=== PATIENT | female | born 1975 | race African-American/Black ===

== ENCOUNTER 2018-09-07 08:50 | Day surgery (SDC) | payer OTHER ==
[2018-09-04 13:34] VITALS: BMI 23.0
[2018-09-07] MEDS ORDERED: oxyCODONE HCL 5 MG TABLET PO PRN ×2 (09:31)
[2018-09-07] MEDS ORDERED: ONDANSETRON 4 MG/2 ML VIAL IVPUSH PRN (09:31)
[2018-09-07] MEDS ORDERED: LACTATED RINGERS SOLUTION 1,000 ML IV SCH (09:45)
[2018-09-07] MEDS ORDERED: PROPOFOL 20 ML ONE (10:12)
[2018-09-07] MEDS ORDERED: MIDAZOLAM HCL 2 MG/2 ML SINGLE DOSE VIAL ONE ×2 (10:12→10:21)
--- NOTE | 2018-09-07 10:23 | HP ---
[facility] - Chief Complaint Chief Complaint: Desires IUD removal History of Present Illness: 43 yo G P LMP with bleeding problems and has retained IUD History Source: Patient Limitations to Obtaining History: No Limitations - Past Medical History Allergies/Adverse Reactions: Allergies Allergy/AdvReac Type Severity Reaction Status Date / Time No Known Allergies Allergy Verified 09/07/18 09:51 ...LMP: 08/14/18 ...: No ...: 2 ...Para: 2 - Current Medications Current Medications: Home Medications Medication Instructions Recorded NK [No Known Home Medication] 09/04/18 [facility] Physical Exam - Physical Examination Vital Signs: Vital Signs Period Temp Pulse Resp BP Sys/Rausch Pulse Ox Last 24 Hr 98.4 F-98.4 F 81-81 20-20 112-112/75-75 100 General Appearance: Well Nourished, Well Developed ENT: Clear Lung: Clear to auscultation Heart: Regular rate & rhythm, Normal S1, Normal S2 Breasts: Soft, Non-Tender, No masses bilaterally Abdomen: Soft, No tenderness Extremities: No edema, No tenderness/swelling Pelvic Exam: Within normal limits External Genitalia, Within normal limits Vagina, Within normal limits Cervix, Within normal limits Uterus, Within normal limits [facility]: Intact, Alert, Oriented [facility] Impression/Plan - Impression/Plan Impression: Retained IUD. Menorrhagia Operative Procedure: Hysteroscopic IUD removal Date to be Performed: 09/07/18
[2018-09-07] MEDS ORDERED: IBUPROFEN 400 MG TABLET (FP) PO PRN (10:30)
[2018-09-07] MEDS ORDERED: ACETAMINOPHEN 325 MG TABLET (FP) PO PRN (10:30)
--- NOTE | 2018-09-07 11:38 | OP ---
Operative Note - Note: Operative Date: 09/07/18 Pre-Operative Diagnosis: Retained IUD. Menorrhagia Operation: Hysteroscopic Lysis of adhesions. Hysteroscopic IUD removal. Suction DC Findings: Numerous intrauterine adhesions Post-Operative Diagnosis: Same as Pre-op (intrauterine adhesions) Surgeon: Alba Covarrubias Anesthesia: General Estimated Blood Loss (mls): 20 Operative Report Dictated: Yes
[2018-09-07] MEDS ORDERED: oxyCODONE HCL 10 MG SUSTAINED ACTING TABLET ONE (12:19)
[2018-09-07] MEDS ORDERED: ONDANSETRON 4 MG/2 ML VIAL ONE (12:20)
[2018-09-07 14:01] VITALS: BP 131/64; PULSE 81; TEMP 97.9
--- NOTE | 2018-09-08 16:20 | PATH ---
Surgical Pathology Report Patient Name: TAZ GARCIA [facility]. Rec. #: [id number] /Age/Gender: 1975 (Age: 43) / F Account: [id number] Location: [facility] SURGICAL Taken: 09/07/2018 Received: 09/07/2018 Reported: 09/08/2018 Physicians: Alba Covarrubias M.D. Specimen(s) Received A: REMOVED IUD B: ENDOMETRIAL CURETTINGS Clinical History Menometrorrhagia Final Diagnosis A. INTRAUTERINE DEVICE (IUD), REMOVAL: FOREIGN BODY MATERIAL CONSISTENT WITH INTRAUTERINE DEVICE (IUD). MACROSCOPIC DIAGNOSIS. B. ENDOMETRIAL CURETTINGS, DILATION AND CURETTAGE: FRAGMENTS OF SECRETORY ENDOMETRIUM, FOCAL STROMAL PSEUDODECIDUALIZATION, AND ASSOCIATED FOCAL ACUTE INFLAMMATORY INFILTRATE. SCANT SUPERFICIAL MYOMETRIUM. BENIGN CERVICAL TISSUE WITH MICROGLANDULAR HYPERPLASIA AND FOCAL ACUTE MILD INFLAMMATION. Electronically Signed Yenny Coates M.D. Gross Description A. Received fresh labeled "removed IUD," is a 3.5 cm in length T shaped device with attached string, consistent with an intrauterine device. No soft tissue is present. No sections are submitted, gross only. B. Received in formalin labeled "endometrial curettings," is a 2.5 x 2.0 x 0.3 cm aggregate of ray red soft tissue fragments. The formalin is filtered and the specimen is entirely submitted in one cassette. /09/07/2018 saudi09/07/2018
--- NOTE | 2018-09-11 00:48 | OP ---
DATE OF OPERATION: 09/07/2018 PREOPERATIVE DIAGNOSIS: Retained intrauterine device and menorrhagia. OPERATION: Hysteroscopic lysis of adhesions, hysteroscopic intrauterine device removal and suction dilation and curettage. FINDINGS: Retained IUD as well as intrauterine adhesions. POSTOPERATIVE DIAGNOSIS: Retained intrauterine device, menorrhagia, and intrauterine adhesions. SURGEON: Alba Covarrubias MD ANESTHESIA: General. ESTIMATED BLOOD LOSS: 20 mL. PROCEDURE: Patient was taken to the operating room and placed in the dorsal lithotomy position, prepped and draped in the usual sterile fashion. Speculum was placed in the vagina. Anterior lip of the cervix was grasped with a single-toothed tenaculum. Cervix was then dilated to accommodate the operative hysteroscope. The IUD was seen in the endometrium and removal of IUD was then done. Visualization revealed numerous adhesions. Lysis of adhesions was then performed followed by suction dilation and curettage. Endometrial cavity was noted to be clean after the lysis of adhesions and suction dilation and curettage. All instruments were then removed. Patient tolerated the procedure well. Estimated blood loss was 20 mL. ALBA COVARRUBIAS M.D. [id number]
== END 2018-09-07 14:36 | disposition home or self-care (01) ==
LOC: JASU-SURG 08:50
PROVIDERS: ATTEND Obstetrics & Gynecology
PROC: 0UJD8ZZ Inspection of Uterus and Cervix, Via Natural or Artificial Opening Endoscopic (ICD-10-PCS; 2018-09-07)
PROC: 0UN98ZZ Release Uterus, Via Natural or Artificial Opening Endoscopic (ICD-10-PCS; principal; 2018-09-07 10:00)
PROC: 0UC98ZZ Extirpation of Matter from Uterus, Via Natural or Artificial Opening Endoscopic (ICD-10-PCS; 2018-09-07 10:00)
PROC: 0UDB7ZX Extraction of Endometrium, Via Natural or Artificial Opening, Diagnostic (ICD-10-PCS; 2018-09-07 10:00)
DX: N92.0 Excessive and frequent menstruation with regular cycle (principal); Z30.432 Encounter for removal of intrauterine contraceptive device; N85.6 Intrauterine synechiae
CPT/HCPCS: 88300-TC; 88305-TC; 94760

== ENCOUNTER 2021-09-16 17:44 | Inpatient (IN) | payer OTHER ==
[2021-09-16] MEDS ORDERED: ACETAMINOPHEN 1000 MG/100 ML BAG IVPB ONE (18:26)
[2021-09-16] MEDS ORDERED: METOCLOPRAMIDE HCL INJECTION 10 MG/2 ML VIAL IVPB ONE (18:26)
[2021-09-16] MEDS ORDERED: SODIUM CHLORIDE 1,000 ML IV STA (18:26)
[2021-09-16 18:54] LABS: BASO % 0.6 % (0-2.0); EOS % 0.5 % (0-4.5); HEMATOCRIT 42.1 % (32.4-45.2); LYMPH % 26.2 % (8-40); MCH 29.4 pg (25.7-33.7); MCHC 33.4 g/dl (32.0-36.0); MEAN CELL VOLUME 87.9 fl (80-96); MEAN PLT VOLUME 8.4 fl (7.5-11.1); MONO % 7.1 % (3.8-10.2); NEUT % 65.6 % (42.8-82.8); PLATELET COUNT 275 10^3/uL (134-434); RBC 4.78 M/mm3 (3.60-5.2); RDW 13.1 % (11.6-15.6)
[2021-09-16] MEDS ORDERED: ACETAMINOPHEN INJECTION 100 ML IVPB ONE ×2 (18:54→20:13)
[2021-09-16 19:01] LABS: INR 1.2 (0.83-1.09); PROTHROMBIN TIME (PATIENT) 13.8 SEC (9.7-13.0)
[2021-09-16] MEDS ORDERED: METOCLOPRAMIDE HCL INJECTION 10 MG/2 ML VIAL ONE (20:13)
[2021-09-16 20:39] LABS: PH,URINE 6.5 (5.0-8.0); URINE APPEARANCE CLEAR; URINE BILIRUBIN NEGATIVE (NEGATIVE); URINE COLOR YELLOW; URINE GLUCOSE (UA) NEGATIVE (NEGATIVE); URINE KETONE TRACE (NEGATIVE); URINE LEUK ESTERASE NEGATIVE (NEGATIVE); URINE NITRITE NEGATIVE (NEGATIVE); URINE PROTEIN NEGATIVE (NEGATIVE); URINE UROBILINOGEN 0.2 mg/dL (0.2-1.0)
[2021-09-16 20:42] LABS: HCG,QUALITATIVE URINE Negative
[2021-09-16 21:30] LABS: ALBUMIN 3.7 g/dl (3.4-5.0); BLOOD UREA NITROGEN 9.9 mg/dL (7-18); CALCIUM 9.3 mg/dL (8.5-10.1)
[2021-09-16 21:33] LABS: CREATININE 0.8 mg/dL (0.55-1.3)
[2021-09-16 21:35] LABS: BILIRUBIN,TOTAL 0.3 mg/dL (0.2-1)
[2021-09-17] MEDS ORDERED: ACETAMINOPHEN 1000 MG/100 ML BAG IVPB PRN (02:53)
[2021-09-17] MEDS: GABAPENTIN 300 MG CAPSULE PO SCH ×3 (06:08→22:56)
[2021-09-17] MEDS ORDERED: ALPRAZolam 1 MG TABLET PO PRN (06:58)
[2021-09-17] MEDS ORDERED: ENOXAPARIN NA (PORCINE) 40 MG/0.4 ML DISP.SYRIN SQ ONE (09:24)
[2021-09-17] MEDS: ENOXAPARIN NA (PORCINE) 40 MG/0.4 ML DISP.SYRIN SQ SCH (10:54)
[2021-09-17] MEDS ORDERED: ACETAMINOPHEN/CAFFEINE/BUTALBITAL 1 TAB PO PRN (12:00)
[2021-09-17] MEDS ORDERED: ALPRAZolam 1 MG TABLET ONE (13:10)
[2021-09-17 14:08] LABS: SARS-CoV-2 NAA Not Detected (Not Detected)
[2021-09-17] MEDS: ALPRAZolam 1 MG TABLET PO PRN (22:57)
[2021-09-17] MEDS: diphenhydrAMINE HCL 25 MG CAPSULE (FP) PO PRN (23:02)
[2021-09-17 23:31] VITALS: BMI 24.3
[2021-09-18] MEDS: GABAPENTIN 300 MG CAPSULE PO SCH ×4 (05:14→22:22)
[2021-09-18] MEDS: diphenhydrAMINE HCL 25 MG CAPSULE (FP) PO PRN (08:20)
[2021-09-18] MEDS: ENOXAPARIN NA (PORCINE) 40 MG/0.4 ML DISP.SYRIN SQ SCH (09:47)
[2021-09-18 10:35] LABS: CALCIUM 8.5 mg/dL (8.5-10.1)
[2021-09-18 10:36] LABS: BLOOD UREA NITROGEN 9.6 mg/dL (7-18)
[2021-09-18 10:39] LABS: CREATININE 0.9 mg/dL (0.55-1.3)
[2021-09-18] MEDS: ALPRAZolam 1 MG TABLET PO PRN (13:00)
[2021-09-18] MEDS: oxyCODONE HCL 5 MG TABLET PO PRN (14:57)
[2021-09-18] MEDS ORDERED: MAGNESIUM 2GM/50ML STERILE WATER IVPB IVPB ONE (15:37)
[2021-09-18] MEDS ORDERED: DEXAMETHASONE SOD PHOSPHATE/PF 10 MG/ML SDV IVPB ONE (15:57)
[2021-09-18] MEDS ORDERED: DEXAMETHASONE 0.5 MG TABLET PO ONE (22:00)
[2021-09-18] MEDS: TOPIRAMATE 100 MG TABLET PO SCH ×2 (22:11→22:22)
[2021-09-19] MEDS: oxyCODONE HCL 5 MG TABLET PO PRN ×2 (00:06→12:49)
[2021-09-19] MEDS: ALPRAZolam 1 MG TABLET PO PRN ×2 (01:14→12:51)
[2021-09-19] MEDS: GABAPENTIN 300 MG CAPSULE PO SCH (06:07)
[2021-09-19] MEDS ORDERED: MAGNESIUM 1GM/D5W 100ML - 100 ML IVPB IVPB ONE (08:45)
[2021-09-19] MEDS: ENOXAPARIN NA (PORCINE) 40 MG/0.4 ML DISP.SYRIN SQ SCH (09:21)
[2021-09-19] MEDS: TOPIRAMATE 100 MG TABLET PO SCH ×2 (09:29→21:28)
[2021-09-19 09:54] LABS: CALCIUM 9.6 mg/dL (8.5-10.1)
[2021-09-19 09:55] LABS: BLOOD UREA NITROGEN 7.8 mg/dL (7-18); MAGNESIUM 2.3 mg/dL (1.8-2.4)
[2021-09-19 09:58] LABS: CREATININE 0.8 mg/dL (0.55-1.3)
[2021-09-19] MEDS ORDERED: DEXAMETHASONE SOD PHOSPHATE/PF 10 MG/ML SDV IVPB ONE (16:30)
[2021-09-19] MEDS ORDERED: DEXAMETHASONE SOD PHOSPHATE 10 MG/1 ML VIAL IVPUSH ONE (17:26)
[2021-09-19] MEDS ORDERED: DOCUSATE SODIUM 100 MG CAPSULE (FP) PO ONE (17:27)
[2021-09-19] MEDS ORDERED: ACETAMINOPHEN/CAFFEINE/BUTALBITAL 1 TAB PO PRN (17:27)
[2021-09-20] MEDS: oxyCODONE HCL 5 MG TABLET PO PRN ×2 (00:21→13:45)
[2021-09-20] MEDS: ALPRAZolam 1 MG TABLET PO PRN ×2 (00:22→13:40)
[2021-09-20] MEDS ORDERED: DOCUSATE SODIUM 100 MG CAPSULE (FP) PO ONE (02:18)
[2021-09-20] MEDS: TOPIRAMATE 100 MG TABLET PO SCH (09:35)
[2021-09-20] MEDS: ENOXAPARIN NA (PORCINE) 40 MG/0.4 ML DISP.SYRIN SQ SCH (09:35)
[2021-09-20] MEDS ORDERED: DEXAMETHASONE SOD PHOSPHATE 10 MG/1 ML VIAL IVPB ONE ×2 (10:00→12:30)
[2021-09-20 13:58] VITALS: BP 112/73; PULSE 97; TEMP 98
== END 2021-09-20 19:50 | disposition home or self-care (01) | DRG 54 ==
LOC: JER 17:44 → JERBED 09-17 01:54 → J7W 09-17 22:47
PROVIDERS: ADMIT Hospitalist; ATTEND Family Medicine
DX: G43.909 Migraine, unspecified, not intractable, without status migrainosus (principal); R00.0 Tachycardia, unspecified; R07.9 Chest pain, unspecified; T50.905A Adverse effect of unspecified drugs, medicaments and biological substances, initial encounter; Y92.89 Other specified places as the place of occurrence of the external cause
CPT/HCPCS: 36415; 70450-TC; 70551-TC; 74177-TC; 80048; 80053; 81003; 82024; 82530; 82533; 82570; 83690; 83735; 84439; 84443; 84484; 84585; 84703; 85025; 85610; 85651; 87086; 93005; 93010; C9803; J1100; J8540; U0003; U0005

== ENCOUNTER 2021-10-01 10:02 | Observation (INO) | payer OTHER ==
[2021-10-01] MEDS ORDERED: SODIUM CHLORIDE 1,000 ML IV ONE (10:34)
[2021-10-01 12:14] LABS: BASO % 0.3 % (0-2.0); EOS % 0.3 % (0-4.5); HEMATOCRIT 39.8 % (32.4-45.2); LYMPH % 18.7 % (8-40); MCH 29.4 pg (25.7-33.7); MCHC 32.8 g/dl (32.0-36.0); MEAN CELL VOLUME 89.7 fl (80-96); MEAN PLT VOLUME 8.7 fl (7.5-11.1); MONO % 8.1 % (3.8-10.2); NEUT % 72.6 % (42.8-82.8); PLATELET COUNT 264 10^3/uL (134-434); RBC 4.44 M/mm3 (3.60-5.2); WHITE BLOOD COUNT 8.8 K/mm3 (4.0-10.0)
[2021-10-01] MEDS ORDERED: ACETAMINOPHEN 1000 MG/100 ML BAG IVPB ONE (12:27)
[2021-10-01 12:28] LABS: CHLORIDE 107 mmol/L (98-107); SODIUM 140 mmol/L (136-145)
[2021-10-01 12:29] LABS: CALCIUM 9.6 mg/dL (8.5-10.1)
[2021-10-01 12:30] LABS: ALBUMIN 3.8 g/dl (3.4-5.0); ANION GAP 6 MMOL/L (8-16); BLOOD UREA NITROGEN 7.8 mg/dL (7-18); CO2 26 mmol/L (21-32); GLUCOSE,RANDOM 97 mg/dL (74-106); MAGNESIUM 2.3 mg/dL (1.8-2.4)
[2021-10-01] MEDS ORDERED: ACETAMINOPHEN INJECTION 100 ML IVPB ONE (12:31)
[2021-10-01 12:33] LABS: CREATININE 0.8 mg/dL (0.55-1.3); SGPT/ALT 19 U/L (13-61)
[2021-10-01 12:34] LABS: SGOT/AST 11 U/L (15-37)
[2021-10-01 12:35] LABS: BILIRUBIN,TOTAL 0.6 mg/dL (0.2-1)
[2021-10-01 12:36] LABS: ALK PHOS 61 U/L (45-117)
[2021-10-01] MEDS ORDERED: METOCLOPRAMIDE HCL INJECTION 10 MG/2 ML VIAL IVPB ONE (13:21)
[2021-10-01 13:31] LABS: VENOUS BASE EXCESS -1.7 mmol/L (-2-2); VENOUS O2 SATURATION 51.5 % (70-80); VENOUS PCO2 44.4 mmHg (38-52); VENOUS PH 7.352 (7.310-7.410)
[2021-10-01] MEDS ORDERED: METOCLOPRAMIDE HCL INJECTION 10 MG/2 ML VIAL ONE (13:55)
[2021-10-01] MEDS ORDERED: MAGNESIUM SULF 50% (8.12 MEQ/2 ML-1 GM VIAL) IVPB ONE (14:44)
[2021-10-01] MEDS ORDERED: MAGNESIUM SULF 50% (8.12 MEQ/2 ML-1 GM VIAL) ONE (14:49)
[2021-10-01] MEDS ORDERED: FAMOTIDINE 20 MG TABLET ONE (14:52)
[2021-10-01] MEDS ORDERED: ALPRAZolam 0.25 MG TABLET ONE (15:02)
[2021-10-01] MEDS ORDERED: morphine SULFATE 4 MG/ML VIAL ONE (15:02)
[2021-10-01] MEDS: FAMOTIDINE 20 MG TABLET PO SCH (15:15)
[2021-10-01] MEDS: morphine SULFATE 4 MG/ML VIAL IVPUSH PRN ×2 (15:15→21:56)
[2021-10-01] MEDS: ALPRAZolam 0.25 MG TABLET PO PRN (15:16)
[2021-10-01 17:32] LABS: PH,URINE 5.5 (5.0-8.0); URINE APPEARANCE CLEAR; URINE BILIRUBIN NEGATIVE (NEGATIVE); URINE COLOR YELLOW; URINE GLUCOSE (UA) NEGATIVE (NEGATIVE); URINE KETONE 1+ (NEGATIVE); URINE LEUK ESTERASE NEGATIVE (NEGATIVE); URINE NITRITE NEGATIVE (NEGATIVE); URINE PROTEIN NEGATIVE (NEGATIVE); URINE UROBILINOGEN 0.2 mg/dL (0.2-1.0)
[2021-10-01 17:44] LABS: URINE BARBITURATES NEGATIVE (NEGATIVE)
[2021-10-01 17:45] LABS: COCAINE, UR NEGATIVE (NEGATIVE); PHENCYCLIDINE,URINE NEGATIVE (NEGATIVE); URINE AMPHETAMINES NEGATIVE (NEGATIVE); URINE BENZODIAZEPINES NEGATIVE (NEGATIVE)
[2021-10-01 17:47] LABS: METHADONE, UR NEGATIVE (NEGATIVE); OPIATES, URI POSITIVE (NEGATIVE)
[2021-10-01] MEDS: MAGNESIUM OXIDE 400 MG TABLET (FP) PO ONE ×2 (21:56→22:14)
[2021-10-01] MEDS: HEPARIN NA (PORCINE) 5,000 UNITS/ML 1ML VIAL SQ SCH ×2 (21:56→22:14)
[2021-10-01] MEDS: GABAPENTIN 300 MG CAPSULE PO SCH ×2 (21:56→22:12)
[2021-10-01] MEDS ORDERED: TOPIRAMATE 100 MG TABLET PO SCH (22:00)
[2021-10-01] MEDS ORDERED: TOPIRAMATE 200 MG TABLET PO SCH (22:00)
[2021-10-01] MEDS: TOPIRAMATE 200 MG TABLET PO SCH (22:13)
[2021-10-02] MEDS: ACETAMINOPHEN/CAFFEINE/BUTALBITAL 1 TAB PO PRN ×2 (04:40→15:40)
[2021-10-02] MEDS: GABAPENTIN 300 MG CAPSULE PO SCH ×4 (06:53→22:56)
[2021-10-02] MEDS: TOPIRAMATE 200 MG TABLET PO SCH ×2 (09:22→22:56)
[2021-10-02] MEDS: HEPARIN NA (PORCINE) 5,000 UNITS/ML 1ML VIAL SQ SCH ×2 (09:22→22:55)
[2021-10-02] MEDS: FAMOTIDINE 20 MG TABLET PO SCH (10:59)
[2021-10-02] MEDS ORDERED: MAGNESIUM SULF 50% (8.12 MEQ/2 ML-1 GM VIAL) IVPB ONE (13:58)
[2021-10-02] MEDS: ATENOLOL 25 MG TABLET (FP) PO SCH (22:59)
[2021-10-02] MEDS: ALPRAZolam 0.25 MG TABLET PO PRN (23:20)
[2021-10-03] MEDS: ACETAMINOPHEN/CAFFEINE/BUTALBITAL 1 TAB PO PRN ×2 (05:23→23:12)
[2021-10-03] MEDS: GABAPENTIN 300 MG CAPSULE PO SCH ×3 (05:25→22:00)
[2021-10-03] MEDS ORDERED: MAGNESIUM 1GM/D5W - 1 GM/100 ML IVPB IVPB ONE (09:00)
[2021-10-03 09:32] LABS: HEMATOCRIT 36.1 % (32.4-45.2); HEMOGLOBIN 12.5 GM/dL (10.7-15.3); MCH 30.3 pg (25.7-33.7); MCHC 34.5 g/dl (32.0-36.0); MEAN CELL VOLUME 87.7 fl (80-96); MEAN PLT VOLUME 8.6 fl (7.5-11.1); PLATELET COUNT 241 10^3/uL (134-434); RBC 4.12 M/mm3 (3.60-5.2); RDW 12.7 % (11.6-15.6); WHITE BLOOD COUNT 7.4 K/mm3 (4.0-10.0)
[2021-10-03 09:42] LABS: BLOOD UREA NITROGEN 5.3 mg/dL (7-18); CALCIUM 9.3 mg/dL (8.5-10.1); MAGNESIUM 2.3 mg/dL (1.8-2.4)
[2021-10-03 09:45] LABS: CREATININE 0.8 mg/dL (0.55-1.3)
[2021-10-03] MEDS: TOPIRAMATE 200 MG TABLET PO SCH ×2 (10:37→22:00)
[2021-10-03] MEDS: ATENOLOL 25 MG TABLET (FP) PO SCH ×2 (10:37→22:11)
[2021-10-03] MEDS: FAMOTIDINE 20 MG TABLET PO SCH (10:37)
[2021-10-03] MEDS: HEPARIN NA (PORCINE) 5,000 UNITS/ML 1ML VIAL SQ SCH ×2 (10:37→22:00)
[2021-10-03 12:20] VITALS: BMI 23.9
[2021-10-03] MEDS: ALPRAZolam 0.25 MG TABLET PO PRN (16:11)
[2021-10-03] MEDS ORDERED: MAGNESIUM SULF 50% (8.12 MEQ/2 ML-1 GM VIAL) IVPB ONE (21:00)
[2021-10-03] MEDS: PRAZOSIN HCL 1 MG CAPSULE PO SCH (21:59)
[2021-10-03] MEDS ORDERED: PRAZOSIN HCL 1 MG CAPSULE PO SCH (22:00)
[2021-10-04] MEDS: morphine SULFATE 4 MG/ML VIAL IVPUSH PRN (00:12)
[2021-10-04] MEDS ORDERED: KETOROLAC TROMETHAMINE 15 MG/ML VIAL IVPUSH ONE (01:21)
[2021-10-04] MEDS: ALPRAZolam 0.25 MG TABLET PO PRN ×2 (05:11→15:27)
[2021-10-04] MEDS: ACETAMINOPHEN 325 MG TABLET (FP) PO PRN ×2 (05:11→15:27)
[2021-10-04] MEDS: GABAPENTIN 300 MG CAPSULE PO SCH ×3 (06:02→21:45)
[2021-10-04] MEDS: HEPARIN NA (PORCINE) 5,000 UNITS/ML 1ML VIAL SQ SCH ×2 (10:03→21:45)
[2021-10-04] MEDS: FAMOTIDINE 20 MG TABLET PO SCH (10:03)
[2021-10-04] MEDS: TOPIRAMATE 200 MG TABLET PO SCH ×2 (10:03→21:45)
[2021-10-04] MEDS: PRAZOSIN HCL 1 MG CAPSULE PO SCH ×2 (10:19→22:16)
[2021-10-04] MEDS ORDERED: MAGNESIUM SULF 50% (8.12 MEQ/2 ML-1 GM VIAL) IVPB ONE (21:00)
[2021-10-04] MEDS: ATENOLOL 25 MG TABLET (FP) PO SCH (22:00)
[2021-10-04] MEDS ORDERED: KETOROLAC TROMETHAMINE 30 MG/1 ML VIAL IVPUSH ONE (23:54)
[2021-10-04] MEDS ORDERED: KETOROLAC TROMETHAMINE 30 MG/1 ML VIAL IM ONE (23:54)
[2021-10-05] MEDS: GABAPENTIN 300 MG CAPSULE PO SCH ×3 (05:25→22:55)
[2021-10-05] MEDS: ALPRAZolam 0.25 MG TABLET PO PRN ×2 (06:09→14:44)
[2021-10-05] MEDS: ACETAMINOPHEN 325 MG TABLET (FP) PO PRN ×3 (06:09→22:18)
[2021-10-05] MEDS: PRAZOSIN HCL 1 MG CAPSULE PO SCH (09:21)
[2021-10-05] MEDS: HEPARIN NA (PORCINE) 5,000 UNITS/ML 1ML VIAL SQ SCH ×2 (09:21→22:54)
[2021-10-05] MEDS: TOPIRAMATE 200 MG TABLET PO SCH ×2 (09:22→22:55)
[2021-10-05] MEDS: FAMOTIDINE 20 MG TABLET PO SCH (09:22)
[2021-10-05] MEDS ORDERED: KETOROLAC TROMETHAMINE 60 MG/2 ML VIAL IVPB ONE (09:30)
[2021-10-05] MEDS ORDERED: KETOROLAC TROMETHAMINE 60 MG/2 ML VIAL IM ONE ×2 (09:30→09:45)
[2021-10-05 10:29] LABS: CALCIUM 8.6 mg/dL (8.5-10.1)
[2021-10-05 10:30] LABS: BLOOD UREA NITROGEN 9.7 mg/dL (7-18); MAGNESIUM 2.3 mg/dL (1.8-2.4)
[2021-10-05 10:33] LABS: CREATININE 0.8 mg/dL (0.55-1.3)
[2021-10-05] MEDS ORDERED: ALPRAZolam 1 MG TABLET PO PRN (14:15)
[2021-10-05] MEDS ORDERED: MAGNESIUM 1GM/D5W 100ML - 100 ML IVPB IVPB ONE (14:15)
[2021-10-05] MEDS ORDERED: KETOROLAC TROMETHAMINE 30 MG/1 ML VIAL IVPUSH ONE (14:15)
[2021-10-05] MEDS: ELETRIPTAN HYDROBROMIDE 40 MG TABLET PO PRN (22:53)
[2021-10-05] MEDS: ATENOLOL 25 MG TABLET (FP) PO SCH (22:55)
[2021-10-06] MEDS: GABAPENTIN 300 MG CAPSULE PO SCH (07:35)
[2021-10-06 08:29] VITALS: BP 125/87; PULSE 100; TEMP 98.5
[2021-10-06] MEDS: FAMOTIDINE 20 MG TABLET PO SCH (09:04)
[2021-10-06] MEDS: TOPIRAMATE 200 MG TABLET PO SCH (09:04)
[2021-10-06] MEDS: HEPARIN NA (PORCINE) 5,000 UNITS/ML 1ML VIAL SQ SCH (09:04)
[2021-10-06] MEDS: ELETRIPTAN HYDROBROMIDE 40 MG TABLET PO PRN (09:50)
[2021-10-06] MEDS: ALPRAZolam 0.25 MG TABLET PO PRN (10:59)
== END 2021-10-06 12:52 | disposition home or self-care (01) ==
LOC: JER 10:02 → JERBED 14:48 → J7W 18:35
PROVIDERS: ADMIT Family Medicine; ATTEND Family Medicine
PROC: 3E033NZ Introduction of Analgesics, Hypnotics, Sedatives into Peripheral Vein, Percutaneous Approach (ICD-10-PCS; principal; 2021-10-01)
PROC: 3E033GC Introduction of Other Therapeutic Substance into Peripheral Vein, Percutaneous Approach (ICD-10-PCS; 2021-10-01)
PROC: 3E0337Z Introduction of Electrolytic and Water Balance Substance into Peripheral Vein, Percutaneous Approach (ICD-10-PCS; 2021-10-01)
DX: C74.92 Malignant neoplasm of unspecified part of left adrenal gland (principal); E27.8 Other specified disorders of adrenal gland; G43.909 Migraine, unspecified, not intractable, without status migrainosus; R10.9 Unspecified abdominal pain; D35.00 Benign neoplasm of unspecified adrenal gland
CPT/HCPCS: 36415; 71045-TC-FY; 74183-TC; 80048; 80053; 80307; 81003; 82384; 82803; 82962; 83605; 83735; 84484; 85025; 85027; 93005; 93010; 96365; 96375; 96376; 99285-25; A9579; C9803; G0378; J1644; U0003; U0005